=== PATIENT | male | born 1945 | race Caucasian/White ===

== ENCOUNTER 2020-08-20 07:31 | Day surgery (SDC) | payer MEDICARE, BC ==
[2020-08-17 10:05] VITALS: BMI 27.0
[2020-08-20 08:08] LABS: #Eosinphils 0.2 thou/uL (0.0-0.7); #Lymphocytes 1.5 thou/uL (1.20-3.40); #Monocytes 0.3 thou/uL (0.11-0.59); #Neutrophils 1.9 thou/uL (1.40-6.50); %Basophils 0.4 % (0.0-1.0); %Eosinophils 4.6 % (0.0-10.0); %Monocytes 8.5 % (0.0-10.0); %Neutrophils 48.5 % (42.0-75.0); Hemoglobin 12.5 g/dL (14.0-18.0); Mean Corpuscular HGB CONC 33.7 g/dL (32.0-36.0); Mean Corpuscular Hemoglobin 42.3 pg (27.0-31.0); Mean Platelet Volume 8.4 fL (7.4-10.4); Platelet Count 171 thou/uL (130-400); RBC Distribution Width 15.7 % (11.5-14.5); Red Blood Cell (RBC) Count 2.97 mill/uL (4.70-6.10)
[2020-08-20 08:13] LABS: INR-International Normal Ratio 1.1; PTT 29.8 sec (22.9-36.1); Prothrombin Time 13.9 sec (12.0-14.7)
[2020-08-20] MEDS ORDERED: Sodium Bicarbonate 2.5 MEQ/5 ML VIAL ONE (08:26)
[2020-08-20] MEDS ORDERED: Lidocaine 1% PF 5 ML VIAL ONE (08:27)
[2020-08-20] MEDS ORDERED: Fentanyl 100 MCG/2 ML VIAL ONE (08:28)
[2020-08-20] MEDS ORDERED: Midazolam HCl 2 mg/2 ml Vial ONE (08:28)
[2020-08-20 08:33] LABS: MDiff Complete? YES; Macrocytosis MODERATE=16-30 cells (100X) (0-5/hpf); Platelet Morphology Comment Appears Adequate; Polychromasia SLIGHT = 2-3 cells (100X) (0-2/hpf)
--- NOTE | 2020-08-20 09:52 | ULT ---
Hepatic sonogram with duplex evaluation HISTORY: Hemachromatosis. FINDINGS: Gallbladder has a normal appearance without stone evident. Common duct is 0.3 cm. Liver slightly heterogeneous without focal mass or intrahepatic biliary dilatation. No free fluid. Spleen measures up to 10.1 cm length. Good color and spectral Doppler flow within the hepatic and splenic arteries. Portal venous flow is t owards the liver. Hepatic venous flow is towards the IVC. IMPRESSION : No findings of portal venous hypertension or other abnormalities.
--- NOTE | 2020-08-20 09:56 | ULT ---
Hepatic biopsy sonographic guided HISTORY: Hemochromatosis. FINDINGS: After explaining the procedure and answering all questions, sonographic survey showed a saf e approach to left liver lobe anteriorly. Sterile technique, buffered local anesthesia, sonographic guidance, and a subxiphoid approach were us ed to carefully advance a 17-gauge trocar needle into the left liver lobe. A total of 2 18-gauge core biopsy specimens were obtained and eventually sent to pathology for evalua tion. No evidence of complication. Patient tolerated well and was eventually dismissed in good condition. IMPRESSION : Technically successful sonographic guided liver biopsy.
== END 2020-08-20 10:20 | disposition home or self-care (01) ==
LOC: ULT 07:31
PROVIDERS: ATTEND Internal Medicine Gastroenterology
PROC: 0FB23ZX Excision of Left Lobe Liver, Percutaneous Approach, Diagnostic (ICD-10-PCS; principal; 2020-08-20)
DX: E83.110 Hereditary hemochromatosis (principal); K76.89 Other specified diseases of liver; K76.0 Fatty (change of) liver, not elsewhere classified; R73.03 Prediabetes; Z87.891 Personal history of nicotine dependence; Z79.84 Long term (current) use of oral hypoglycemic drugs; Z79.899 Other long term (current) drug therapy
CPT/HCPCS: 36415; 47000; 76705; 76942; 82728; 85025; 85610; 85730; 88307; 88313; J2250; J3010

== ENCOUNTER 2023-01-22 05:43 | Day surgery (SDC) | payer MEDICARE, BC ==
[2023-01-21 14:03] VITALS: BMI 28.8
[2023-01-22] MEDS ORDERED: PROPOFOL 200 MG/20 ML VIAL ONE (08:09)
== END 2023-01-22 10:45 | disposition home or self-care (01) ==
LOC: SDC 05:43
PROVIDERS: ATTEND Internal Medicine Cardiovascular Disease
PROC: B246ZZ4 Ultrasonography of Right and Left Heart, Transesophageal (ICD-10-PCS; principal; 2023-01-22)
PROC: 5A2204Z Restoration of Cardiac Rhythm, Single (ICD-10-PCS; 2023-01-22)
DX: I48.91 Unspecified atrial fibrillation (principal); I11.9 Hypertensive heart disease without heart failure; I08.1 Rheumatic disorders of both mitral and tricuspid valves; I70.0 Atherosclerosis of aorta; E78.00 Pure hypercholesterolemia, unspecified; E11.9 Type 2 diabetes mellitus without complications; F17.210 Nicotine dependence, cigarettes, uncomplicated; F10.10 Alcohol abuse, uncomplicated; Z79.01 Long term (current) use of anticoagulants; Z79.84 Long term (current) use of oral hypoglycemic drugs; Z79.899 Other long term (current) drug therapy; Z88.0 Allergy status to penicillin
CPT/HCPCS: 92960; 93005; 93010; 93312; J2704